=== PATIENT | male | born 1995 | race Two or more races ===

== ENCOUNTER 2023-05-26 14:39 | Emergency (ER) | payer MEDICAID, OTHER ==
[~2023-05-26] VITALS: Ht 177.8 cm; Wt 92.6 kg
[2023-05-26 15:32] VITALS: BP 124/83; PULSE 104; RESP 16; TEMP 98.9; O2SAT 97
[2023-05-26] MEDS ORDERED: CEPH500C PO (16:33)
[2023-05-26] MEDS ORDERED: NAP500T PO (16:33)
== END 2023-05-26 16:41 | disposition home or self-care (01) ==
LOC: ER 14:39
DX: S61.032A Puncture wound without foreign body of left thumb without damage to nail, initial encounter (principal); X58.XXXA Exposure to other specified factors, initial encounter; Y93.89 Activity, other specified; Y92.89 Other specified places as the place of occurrence of the external cause; Y99.8 Other external cause status
CPT/HCPCS: 73130